=== PATIENT | female | born 2005 | race Caucasian/White ===

== ENCOUNTER 2025-02-10 21:04 | Emergency (ER) | payer BC, SELFPAY ==
[2025-02-10 21:08] VITALS: BP 104/71
[2025-02-10 21:39] VITALS: BMI 19.6
[2025-02-10 22:00] VITALS: BP 98/70
[2025-02-10 22:02] LABS: Hematocrit 33.3 % (37.0-47.0); Hemoglobin 11.7 g/dL (12.0-16.0); Mean Corp Hgb Conc. 35.1 g/dL (33.0-37.0); Mean Corpuscular Volume 92.8 fL (81.0-99.0); Nucleated Red Blood Cells % 0 %; Platelet Count 294 10^3/uL (130-400); Red Cell Dist. Width 11.7 % (11.5-14.5)
[2025-02-10 22:19] LABS: ALT (SGPT) 15 U/L (0-35); AST (SGOT) 19 U/L (14-36); Albumin 4.7 g/dl (3.5-5.0); Alkaline Phosphatase 40 U/L (38-126); Blood Urea Nitrogen 15 mg/dl (7-17); Calcium 9.1 mg/dl (8.4-10.2); Carbon Dioxide 24 mmol/L (22-30); Chloride 105 mmol/L (98-107); Estimated Creatinine Clearance 115 ml/min; Glucose 121 mg/dl (70-99); Potassium 3.6 mmol/L (3.5-5.1); Sodium 138 mmol/L (135-145); Total Protein 7.4 g/dl (6.3-8.2); eGFR > 60.00
[2025-02-10] MEDS: ZOFRAN 4 MG IV (22:35)
[2025-02-10] MEDS: NSS 1000 IV (22:36)
--- NOTE | 2025-02-10 22:47 | ED.GENMED ---
History of Present Illness
General
Chief Complaint: Abdominal Symptoms
Time Seen by Provider: 02/10/25 22:04
History of Present Illness
History of Present Illness:
19-year-old female without significant past medical history presenting to the emergency department for vomiting and lethargy. Patient arrives with boyfriend who notes that patient took 2 THC Gummies prior to arrival. They are watching movie and
then patient started to vomit. She does not typically take marijuana product, received 50 mg. Patient limited historian given her present symptoms. was also concerned because she was having bleeding from her nose ring. He felt the bleeding
worsened when she was vomiting. No report of any fever or recent illness. No additional history obtained at this time.
Phy Exam
Physical Exam
Physical Exam:
General: Well-appearing, no clinical signs of dehydration, nontoxic and in no acute distress
HEENT: protecting airway, no active bleeding from the nares.
Neck: appears supple
CV: Normal heart rate, regular rhythm
Resp: No accessory muscle use, no increased work of breathing, lungs clear to auscultation bilaterally
Abd: Soft and non-distended, no tenderness to palpation
Extremities: No deformities, no swelling, no erythema
Neuro: alert, lethargic but arousable to verbal and tactile stimuli.
: deferred
Rectal: deferred
Psych: Normal affect
Skin: Intact
Course
Orders/Labs/Results
Orders:
Orders
02/10/25 21:46
CBC/With Diff [Complete Blood Count/With Diff] Urgent
CMP [Comprehensive Metabolic Panel] Urgent
02/10/25 22:33
0.9% Sodium Chloride 1000 ml [Nss] 1,000 ml IV BOLUS
Ondansetron Injectable [Zofran] 4 mg IV NOW STA
Abnormal Lab Results
02/10/25
21:46
RBC 3.59 L 10^6/uL
(4.20-5.40)
Hgb 11.7 L g/dL
(12.0-16.0)
Hct 33.3 L %
(37.0-47.0)
MCH 32.6 H pg
(27.0-31.0)
Glucose 121 H mg/dl
(70-99)
02/10/25 21:46
02/10/25 21:46
Vital Signs
Initial and Last Documented VS:
Initial Vital Signs
Pulse Resp BP Pulse Ox
99 17 104/71 99
02/10/25 21:08 02/10/25 21:08 02/10/25 21:08 02/10/25 21:08
Last Documented Vital Signs
Temp Pulse Resp BP Pulse Ox
97.9 F 79 13 121/59 99
02/10/25 21:12 02/10/25 23:30 02/10/25 23:30 02/10/25 23:00 02/10/25 22:49
MDM/Problems Addressed
MDM/Problems Addressed:
19-year-old female without significant past medical history presenting for lethargy and vomiting. Vital signs on arrival normal.
On exam patient is resting comfortably, sleeping. No acute distress. Suspect patient's symptoms are secondary to patient ingestion of THC Gummies. Patient had fairly large dose of 50 mg for an individual who does not use marijuana containing
products. Currently hemodynamically stable, nontoxic. Patient afebrile, nontoxic. Screening laboratory analysis obtained prior to my assessment, unremarkable. No focal neurologic deficits or concern for central neurologic process. Will treat
with IV fluids and continue to closely monitor. No indication for additional advanced workup.
00:20 -patient is improving, more alert. Will ambulate with plan for discharge.
*Pulse Oximetry
SaO2: 99
Oxygen Mode of Delivery: Room air
Patient hypoxic: no
*Critical Care Note
Total Time (30-74mins, 75-104mins- exclusive of procedures): Not Applicable
ED Attending Note
-
Portions of this chart may have been created with voice recognition software.� Occasional wrong word or��sound alike� substitutions may have occurred due to the inherent limitations of voice recognition software.
Discharge Plan
Interventions
Interventions:
*Risk Screen - Suicide Last Done: 02/10/25 21:08
*General Assessment Last Done: 02/10/25 21:08
*Neglect/Abuse Screening Last Done: 02/10/25 21:39
*ED- Fall Risk Assessment Last Done: 02/10/25 21:39
*ED COVID-19 Vaccine History Last Done: 02/10/25 21:39
TE-Bgwatz-Ggybakvzel Assessment Last Done: 02/10/25 21:40
Discharge Date and Time
Print Language: FRISIAN
[2025-02-10 23:00] VITALS: BP 121/59
[2025-02-11] VITALS: BP 111/54
[2025-02-11 00:54] VITALS: BP 126/62
== END 2025-02-11 01:16 | disposition home or self-care (01) ==
LOC: EMR 21:04
PROVIDERS: Emergency Medicine; EMERGENCY PHYSICIAN Student in an Organized Health Care Education/Training Program
DX: R11.2 Nausea with vomiting, unspecified (principal); R53.83 Other fatigue
CPT/HCPCS: 99283; 80053; 85025